=== PATIENT | female | born 1960 | race Two or more races ===

== ENCOUNTER → 2018-01-12 | Outpatient (CLI) | payer OTHER ==
[~2018-01-12] MED LIST: ATOR40TA PO; FENTANYL PF 100 MCG/2ML ONE; LEVO175T5 PO; MIDAZOLAM 1 MG/ML, 2ML ONE
== END | disposition home or self-care (01) ==
LOC: STAR 15:08
PROVIDERS: ATTEND Obstetrics & Gynecology Female Pelvic Medicine and Reconstructive Surgery
DX: Z02.9 Encounter for administrative examinations, unspecified (principal)

== ENCOUNTER 2018-01-18 06:56 | Day surgery (SDC) | payer OTHER ==
[~2018-01-18] VITALS: Ht 160 cm; Wt 63.4 kg
[~2018-01-18 06:56] MED LIST changes: -ATOR40TA PO; +BUPIVACAINE/PF-EPI 0.25% 1:200K ONE; -FENTANYL PF 100 MCG/2ML ONE; -MIDAZOLAM 1 MG/ML, 2ML ONE; +NEOMY/POLYMYXIN B GU IRR. 1 ML IRRIG ONE
[2018-01-18 07:37] VITALS: BP 105/68
[2018-01-18] MEDS ORDERED: ATOR40TA PO (07:47)
[2018-01-18] MEDS ORDERED: LACTATED RINGERS 1,000 ML IV SCH (08:02)
[2018-01-18] MEDS ORDERED: LABETALOL 5MG/ML, 20ML IV PRN (08:30)
[2018-01-18] MEDS ORDERED: MIDAZOLAM 1 MG/ML, 2ML IV PRN (08:30)
[2018-01-18] MEDS ORDERED: OXYcodone 5 MG/5 ML ORAL.SOL UDC PO PRN (08:30)
[2018-01-18] MEDS ORDERED: MEPERIDINE/PF 25MG/0.5ML IVPush PRN (08:30)
[2018-01-18] MEDS ORDERED: ONDANSETRON 2MG/ML, 2ML IVPush PRN (08:30)
[2018-01-18] MEDS ORDERED: FENTANYL PF 100 MCG/2ML IV PRN (08:30)
[2018-01-18] MEDS ORDERED: HYDROmorphone 1 MG/ML, 1ML IV PRN (08:30)
[2018-01-18] MEDS ORDERED: CEFAZOLIN 1,000 MG ONE (08:42)
[2018-01-18] MEDS ORDERED: DEXAMETHASONE 4 MG/ML, 1ML ONE (08:42)
[2018-01-18] MEDS ORDERED: FENTANYL PF 100 MCG/2ML ONE (08:42)
[2018-01-18] MEDS ORDERED: MIDAZOLAM 1 MG/ML, 5ML ONE (08:42)
[2018-01-18] MEDS ORDERED: SUCCINYLCHOLINE 20 MG/ML, 10ML ONE (08:42)
[2018-01-18] MEDS ORDERED: EPHEDRINE 50 MG/ML, 1ML ONE (08:42)
[2018-01-18] MEDS ORDERED: KETOROLAC 30 MG/1 ML ONE (08:42)
[2018-01-18] MEDS ORDERED: ONDANSETRON 2MG/ML, 2ML ONE (08:42)
[2018-01-18] MEDS ORDERED: PROPOFOL 10 MG/ML, 20ML ONE (08:42)
[2018-01-18] MEDS ORDERED: METOPROLOL 1 MG/ML, 5ML ONE (08:42)
[2018-01-18] MEDS ORDERED: OXYcodone 5 MG/5 ML ORAL.SOL UDC ONE (10:06)
== END 2018-01-18 11:55 | disposition home or self-care (01) ==
LOC: OUT 06:56
PROVIDERS: ATTEND Obstetrics & Gynecology Female Pelvic Medicine and Reconstructive Surgery
DX: N81.4 Uterovaginal prolapse, unspecified (principal); N81.89 Other female genital prolapse; N39.46 Mixed incontinence; N32.81 Overactive bladder; E03.9 Hypothyroidism, unspecified; E78.00 Pure hypercholesterolemia, unspecified; Z90.710 Acquired absence of both cervix and uterus; Z98.890 Other specified postprocedural states; Z98.49 Cataract extraction status, unspecified eye
CPT/HCPCS: 57265; 57282; 57288; C1771; J0330; J0690; J1100; J1885; J2250; J2405; J2704; J3010; J7120